=== PATIENT | female | born 1965 | race Caucasian/White ===

== ENCOUNTER 2018-09-30 09:01 | Observation (INO) ==
--- NOTE | 2018-09-30 09:09 | Emergency Department Note ---
Disposition Clinical Impression: Hypoxia CAP (community acquired pneumonia) Qualifiers: Laterality: unspecified laterality Qualified Code(s): J18.9 - Pneumonia, unspecified organism Dyspnea Qualifiers: Dyspnea type: shortness of breath Qualified Code(s): R06.02 - Shortness of breath; R06.00 - Dyspnea, unspecified; R06.01 - Orthopnea Disposition: Home, Self-Care Condition: Good General Adult HPI - General Stated complaint: GREGORY Time Seen by Provider: 09/30/18 09:07 Source: patient, EMS Mode of arrival: EMS Limitations: no limitations Nursing Notes Reviewed: Yes Vital Signs Reviewed: Yes - History of Present Illness Pt Subjective Complaint: "Trouble breathing, still coughing, still sick" Onset (ago): day(s) ("It started Saturday") Location: chest ("Feels tight and sore when I cough") Radiation: non-radiation Pain Severity: mild Quality: other ("tight") Consistency: constant Improves with: nothing Worsens with: other (coughing) Associated symptoms: Reports: chest pain, cough, fever/chills, malaise. Denies: confusion, diaphoresis, headaches, loss of appetite, nausea/vomiting, rash, seizure, shortness of breath, syncope, weakness Treatments Prior to Arrival: none - Related Data Previous Rx's Medication Instructions Recorded Famotidine [Pepcid] 20 mg PO BID #60 tablet 04/22/15 Peg 3350/Na Sulf,Bicarb,Cl/KCl 4,000 ml PO DAILY #1 soln.recon 04/23/15 [Golytely Solution] Allergies Allergy/AdvReac Type Severity Reaction Status Date / Time No Known Allergies Allergy Verified 09/30/18 09:04 All systems ED: reviewed and negative except as stated. Review of Systems: As Per HPI Constitutional: Reports: as per HPI, fever. Denies: chills, weakness, weight change Eyes: Denies: eye pain ENT ED: Denies: ear pain, throat pain, congestion, dysphagia Cardiovascular: Reports: as per HPI, chest pain, dyspnea on exertion, orthopnea. Denies: palpitations, edema, syncope Respiratory: Reports: as per HPI, cough, dyspnea, wheezes. Denies: hemoptysis, stridor, sputum production Gastrointestinal: Denies: abdominal pain, nausea, vomiting Genitourinary: Denies: urgency, dysuria, frequency Musculoskeletal: Denies: back pain, neck pain, arthralgia Integumentary: Denies: rash Neurological: Denies: headache, weakness, confusion, vertigo Hematological/Lymphatic: Denies: easy bleeding, easy bruising Past Medical History - Past Medical History Attestation: Yes The following information was validated with the patient. Source: patient, old records reviewed, nursing notes reviewed, other (senior care care provider) Medical history: Reports: other (peripheral edema) Surgical history: Reports: non-contributory Psychiatric history: Reports: schizophrenia - Social History Smoking Status: Former smoker Smokeless Tobacco Status: No Alcohol use: Reports: none Drug use: Reports: none Physical Exam - General Limitations: no limitations General appearance: alert, in no apparent distress - Head Head exam: atraumatic, normocephalic, normal inspection - Eye Eye exam: Present: normal appearance, PERRL. Absent: scleral icterus, conjunctival injection, periorbital swelling - ENT ENT exam: mucous membranes dry - Neck Neck exam: Present: normal inspection, full ROM, trachea midline. Absent: te nderness, meningismus, lymphadenopathy - Chest Chest inspection: Present: normal inspection, symmetric chest wall rise. Absent: tenderness - Respiratory Respiratory exam: Present: respiratory distress (mildly tachypneic), wheezes. Absent: stridor, accessory muscle use, prolonged expiratory phase - Expanded Respiratory Exam Location: wheezes: Left, Right, Upper, Lower, rhonchi: Left, Lower, decreased breath sounds: Left, Right, Upper, Lower - Cardiovascular Cardiovascular exam: Present: regular rate, normal rhythm - Extremities Exam Extremities exam: Present: normal inspection, normal capillary refill. Absent: pedal edema, calf tenderness - Back Exam Back exam: Present: normal inspection - Neurological Exam Neurological exam: Present: alert, oriented X3, CN II-XII intact, normal gait - Psychiatric Psychiatric exam: Present: normal affect, normal mood - Skin Skin exam: Present: warm, dry, intact, normal color Course Course Narrative: Patient was brought to the ER by squad from her workshop for evaluation of trouble breathing. Patient provides some of the history. The staff member from the [id number] provides some history as well. Later, one of the patient's caregivers from the senior care arrived and also provided some history. Patient reportedly has been ill since Saturday with cough and congestion, fever, chills, malaise. All of the members of the senior care including staff were treated with Tamiflu. Patient did not have a nasal swab done on Saturday. She has been taking the Tamiflu since Saturday evening. No fever since Saturday morning. She states that she felt a little bit better Saturday, however, her cough and trouble breathing have worsened since yesterday. She has chest tightness. Denies hemoptysis, leg pain or swelling, history of DVT or PE, recent surgery procedure air travel or prolonged sedentary periods. She also denies history of coronary artery disease, COPD, emphysema, CHF. She does occasionally have some swelling in her feet and ankles. She states that she takes a water pill for this as needed. On exam, patient is mildly tachypneic but is able to speak in short sentences without pausing to breathe. No use of accessory muscles. She is very wheezy and tight with left lower rhonchi. No other abnormalities noted on physical exam. X-ray, labs and meds ordered. Patient received a DuoNeb treatment while in route. Two additional DuoNeb treatments have been ordered. Labs show mild leukopenia, CO2 of 30, otherwise normal. Blood cultures were obtained 2. Influenza nasal swab is negative. Chest x-ray has been read by the radiologist as no acute abnormality. Patient continues to have a profoundly congested sounding cough. She still feels a little short of breath but this is improved. She denies chest pain at this time. A road test pending. Patient ambulated approximately 20 yards and felt short of breath. Her oxygen saturation dropped to 87% on room air. She was able to ambulate back to the bed without assistance. Suspect that she has a pneumonia. Do not suspect PE as the patient's well score is zero, no history of DVT or PE. No family history of DVT or PE, no recent prolonged sedentary periods, procedures or surgeries. No known cancer. We will contact the hospitalist for admission. Patient has been accepted for admission. The hospitalist requests that we start patient on Levaquin. This has been ordered. Vital Signs Temperature 98.0 F 09/30/18 09:04 Pulse Rate 69 09/30/18 09:04 Respiratory Rate 24 09/30/18 09:04 Blood Pressure 133/68 09/30/18 09:04 O2 Sat by Pulse Oximetry 100 09/30/18 09:04 Temperature 98.0 F 09/30/18 09:04 Pulse Rate 69 09/30/18 09:04 Respiratory Rate 15 09/30/18 09:25 Blood Pressure 133/68 09/30/18 09:04 O2 Sat by Pulse Oximetry 95 09/30/18 09:25 Oxygen Delivery Oxygen Delivery Aerosol Mask Medical Decision Making - Medical Records Medical records reviewed: Yes I reviewed the patient's medical records. - Lab Data Lab results reviewed: Yes I reviewed the patient's lab results. Lab results narrative: Laboratory Last Values WBC 3.9 K/mcL (4.3-11.1) L 09/30/18 09:13 RBC 4.38 M/mcL (3.82-4.97) 09/30/18 09:13 Hgb 13.2 g/dL (11.5-15.4) 09/30/18 09:13 Hct 39.7 % (35.3-44.9) 09/30/18 09:13 MCV 90.6 fL (83.0-100.0) 09/30/18 09:13 MCH 30.1 pg (28.0-33.3) 09/30/18 09:13 MCHC 33.2 g/dL (31.6-35.5) 09/30/18 09:13 RDW 12.7 % (11.5-14.5) 09/30/18 09:13 Plt Count 279 K/mcL (140-400) 09/30/18 09:13 MPV 8.8 fL (9.4-12.4) L 09/30/18 09:13 Immature Gran % 0.5 % (0-4) 09/30/18 09:13 Seg Neutrophils % 45.8 % 09/30/18 09:13 Lymphocytes % 38.6 % 09/30/18 09:13 Monocytes % 11.2 % 09/30/18 09:13 Eosinophils % 3.6 % 09/30/18 09:13 Basophils % 0.3 % 09/30/18 09:13 Neutrophils # 1.8 K/mcL (1.6-8.9) 09/30/18 09:13 Lymphocytes # 1.5 K/mcL (0.6-4.6) 09/30/18 09:13 Monocytes # 0.4 K/mcL (0.0-1.3) 09/30/18 09:13 Eosinophils # 0.1 K/mcL (0.0-0.6) 09/30/18 09:13 Basophils # 0.0 K/mcL (0.0-0.2) 09/30/18 09:13 Sodium 137 mEq/L (136-145) 09/30/18 09:13 Potassium 4.6 mEq/L (3.5-5.1) 09/30/18 09:13 Chloride 101 mEq/L (98-107) 09/30/18 09:13 Carbon Dioxide 31 mEq/L (23-29) H 09/30/18 09:13 BUN 8 mg/dL (6-20) 09/30/18 09:13 Creatinine 0.68 mg/dL (0.60-1.20) 09/30/18 09:13 Est GFR ( Amer) > 60 (> 60) 09/30/18 09:13 Est GFR (Non-Af Amer) > 60 (> 60) 09/30/18 09:13 BUN/Creatinine Ratio 12 (6-26) 09/30/18 09:13 Glucose 88 mg/dL (70-105) 09/30/18 09:13 Calculated Osmolality 282 (280-300) 09/30/18 09:13 Lactic Acid 0.8 mmol/L (0.5-2.2) 09/30/18 09:13 Calcium 9.1 mg/dL (8.6-10.3) 09/30/18 09:13 Troponin I < 0.03 ng/mL (< 0.04) 09/30/18 09:13 B-Natriuretic Peptide 14 pg/mL (Less than 100) 09/30/18 09:13 Result diagrams: 09/30/18 09:13 09/30/18 09:13 Lab Results 09/30/18 09/30/18 09/30/18 Range/Units 09:13 09:13 09:13 WBC 3.9 L (4.3-11.1) K/mcL RBC 4.38 (3.82-4.97) M/mcL Hgb 13.2 (11.5-15.4) g/dL Hct 39.7 (35.3-44.9) % MCV 90.6 (83.0-100.0) fL MCH 30.1 (28.0-33.3) pg MCHC 33.2 (31.6-35.5) g/dL RDW 12.7 (11.5-14.5) % Plt Count 279 (140-400) K/mcL MPV 8.8 L (9.4-12.4) fL Immature Gran % 0.5 (0-4) % Seg Neutrophils % 45.8 % Lymphocytes % 38.6 % Monocytes % 11.2 % Eosinophils % 3.6 % Basophils % 0.3 % Neutrophils # 1.8 (1.6-8.9) K/mcL Lymphocytes # 1.5 (0.6-4.6) K/mcL Monocytes # 0.4 (0.0-1.3) K/mcL Eosinophils # 0.1 (0.0-0.6) K/mcL Basophils # 0.0 (0.0-0.2) K/mcL Sodium 137 (136-145) mEq/L Potassium 4.6 (3.5-5.1) mEq/L Chloride 101 (98-107) mEq/L Carbon Dioxide 31 H (23-29) mEq/L BUN 8 (6-20) mg/dL Creatinine 0.68 (0.60-1.20) mg/dL Est GFR ( Amer) > 60 (> 60) Est GFR (Non-Af Amer) > 60 (> 60) BUN/Creatinine Ratio 12 (6-26) Glucose 88 (70-105) mg/dL Calculated Osmolality 282 (280-300) Lactic Acid 0.8 (0.5-2.2) mmol/L Calcium 9.1 (8.6-10.3) mg/dL Troponin I < 0.03 (< 0.04) ng/mL - Radiology Data Radiology results reviewed: Yes I reviewed the patient's radiology results. Chest X-Ray 09/30/18 09:10 IMPRESSION: No focal airspace disease or overt edema. D/ / Cristin Collins MD / Cristin Collins MD Interpreting Provider: Cristin Collins MD - EKG Data EKG #1 EKG attestation: Yes I reviewed and interpreted this EKG. EKG shows normal: sinus rhythm Rate: normal Rhythm: NSR When compared to previous EKG there are: no significant changes Interpretation: unchanged when compared to prior tracing (date)
[2018-09-30] MEDS ORDERED: Ipratropium/Albuterol Neb 3 ML IH ONE (09:10)
[2018-09-30] MEDS ORDERED: 0.9 % Sodium Chloride 1,000 ML IVC ONE (09:10)
[2018-09-30] MEDS ORDERED: methylPREDNISolone 125 MG/2 ML VIAL IVP ONE (09:10)
[2018-09-30 09:32] LABS: Basophils % 0.3 %; Eosinophils # 0.1 K/mcL (0.0-0.6); Eosinophils % 3.6 %; Hematocrit 39.7 % (35.3-44.9); Hemoglobin 13.2 g/dL (11.5-15.4); Immature Granulocytes % 0.5 % (0-4); Lymphocytes # 1.5 K/mcL (0.6-4.6); Lymphocytes % 38.6 %; Mean Corpuscular HGB Conc 33.2 g/dL (31.6-35.5); Mean Corpuscular Hemoglobin 30.1 pg (28.0-33.3); Mean Corpuscular Volume 90.6 fL (83.0-100.0); Mean Platelet Volume 8.8 fL (9.4-12.4); Monocytes # 0.4 K/mcL (0.0-1.3); Monocytes % 11.2 %; Neutrophils # 1.8 K/mcL (1.6-8.9); Platelet Count 279 K/mcL (140-400); Red Blood Count 4.38 M/mcL (3.82-4.97); Red Cell Distribution Width 12.7 % (11.5-14.5); Segmented Neutrophils % 45.8 %
[2018-09-30] MEDS ORDERED: GuaiFENesin/Dextromethorphan TABLET PO ONE (09:36)
[2018-09-30 09:56] LABS: BUN/Creatinine Ratio 12 (6-26); Blood Urea Nitrogen 8 mg/dL (6-20); Calcium 9.1 mg/dL (8.6-10.3); Carbon Dioxide 31 mEq/L (23-29); Chloride 101 mEq/L (98-107); Glucose 88 mg/dL (70-105); Osmolality,Calculated 282 (280-300); Potassium 4.6 mEq/L (3.5-5.1); Sodium 137 mEq/L (136-145); Troponin I < 0.03 ng/mL (< 0.04); eGFR For Non-African Americans > 60 (> 60)
--- NOTE | 2018-09-30 10:50 | Internal Med History&Physical ---
Date of Encounter: 09/30/18 Time of Encounter: 10:50 Internal Medicine - H&P: HPI History of present illness: Ms. Collado is a 53 year old female who presented with trouble breathing associated with cough and congestion, fever, chills, malaise. She is from a longterm and if they reported that over staff had similar symptoms and they were all treated with Tamiflu. The patient was evaluated by the ER staff and was found to be mildly tachypneic and when they try to work her she desaturated to 87% on room air. Her laboratory data revealed leukocytosis, her chest x-ray was not significant for pneumonia however, her lung exam revealed severe wheezing and she continued to have persistent cough, decision was made to admit the patient for further evaluation and management of possible community-acquired pneumonia. Past Med Surg Social Fam HX - Past Medical History Medical history: other (peripheral edema) Psychiatric history: schizophrenia - Past Surgical History Surgical History: non-contributory - Social History Smoking Status: Former smoker Smokeless Tobacco Status: No Alcohol use: none Drug use: none Internal Medicine - H&P: Meds Acetaminophen [Non-Aspirin] 650 mg PO Q4H PRN 09/30/18 [History] Albuterol Neb [Proventil Neb] 2.5 mg IH Q4H PRN 09/30/18 [History] Aspirin 81 mg PO 199909/30/18 [History] Docusate Sodium [Dulcolax Stool Softener] 100 mg PO 0800 09/30/18 [History] Duloxetine HCl [Cymbalta] 60 mg PO BID 09/30/18 [History] Furosemide [Lasix] 10 mg PO Q48H 09/30/18 [History] Mirtazapine [Remeron] 30 mg PO 199909/30/18 [History] Nitroglycerin [Nitrostat] 0.4 mg SL Q5MIN PRN MDD X3 DOSES CALL 911 09/30/18 [History] Omeprazole [PriLOSEC] 20 mg PO 0709/30/18 [History] Oseltamivir [Tamiflu] 75 mg PO BID 09/30/18 [History] Oxybutynin Chloride [Ditropan Xl] 10 mg PO BID 09/30/18 [History] Polyethylene Glycol 3350 [Purelax] 17 gm PO 1999 PRN 09/30/18 [History] Saline Nasal [place] [[place] Nasal [place]] 1 spr NS BID 09/30/18 [History] Zolpidem [Ambien] 10 mg PO 199909/30/18 [History] diazePAM [Valium] 5 mg PO AD 09/30/18 [History] risperiDONE [RisperDAL] 3 mg PO 199909/30/18 [History] Allergy/AdvReac Type Severity Reaction Status Date / Time No Known Allergies Allergy Verified 09/30/18 09:04 All Systems PM: A 10-system review of systems was performed and is negative for pertinent findings except as documented above in the HPI. - Constitutional Constitutional: chills, fatigue, fever(s), malaise, no night sweats - Cardiovascular Cardiovascular ROS IM: no chest pain, no diaphoresis, no dyspnea, no lightheadedness, no palpitations, no syncope - Respiratory Respiratory: cough, wheezing, no excessive phlegm production - Gastrointestinal Gastrointestinal: no abdominal pain, no diarrhea, no hematemesis, no hematochezia, no melena, no nausea, no vomiting - Neurological Neurological ROS: no confusion, no convulsions, no focal weakness, no numbness, no tingling, no tremor(s) - Constitutional Vitals: Temp Pulse Resp BP Pulse Ox 98.0 F 72 15 152/94 100 09/30/18 09:04 09/30/18 10:27 09/30/18 09:25 09/30/18 10:27 09/30/18 10:27 General appearance: Present: A&O X 3 - Head Head exam: Present: atraumatic, normocephalic - Neck Neck exam general surgery: Present: supple, trachea midline. Absent: lymphadenopathy - Respiratory Respiratory exam: Present: rhonchi, wheezes. Absent: accessory muscle use, rales - Cardiovascular Cardiovascular exam: Present: RRR, +S1, +S2. Absent: diastolic murmur, gallop, rubs, systolic murmur - GI/Abdominal GI/Abdominal exam: Present: normal bowel sounds, soft, no peritoneal signs. Absent: distended, tenderness - Extremities Exam Extremities exam: Present: warm, radial pulses palpable and symmetrical. Absent: calf tenderness, cyanotic, pedal edema Internal Med - H&P Results - Labs CBC & Chem 7: 09/30/18 09:13 09/30/18 09:13 Labs: Short CBC 09/30/18 Range/Units 09:13 WBC 3.9 L (4.3-11.1) K/mcL Hgb 13.2 (11.5-15.4) g/dL Hct 39.7 (35.3-44.9) % Plt Count 279 (140-400) K/mcL Neutrophils # 1.8 (1.6-8.9) K/mcL BMP 09/30/18 09:13 Sodium 137 Potassium 4.6 Chloride 101 Carbon Dioxide 31 H BUN 8 Creatinine 0.68 Glucose 88 Calcium 9.1 Cardiac Enzymes 09/30/18 Range/Units 09:13 Troponin I < 0.03 (< 0.04) ng/mL - Impressions ITS Impressions Chest X-Ray 09/30/18 09:10 IMPRESSION: No focal airspace disease or overt edema. D/ / Cristin Collins MD / Cristin Collins MD Interpreting Provider: Cristin Collins MD - Assessment and Plan (1) CAP (community acquired pneumonia) Current Visit: Yes Status: Acute Assessment and plan: SOB due to *Pneumonia Previous ABx Tx- , Structural lung disease- - Blood Cx - Urine Legionella antigen - Antibiotics - CBCD, CMP in AM - Tylenol 650 mg PO q 4-6 hr PRN pain or fever - Home meds - check the list and restart accordingly - Heparin 5000 U SQ BID Qualifiers: Laterality: unspecified laterality Qualified Code(s): J18.9 - Pneumonia, unspecified organism (2) DVT prophylaxis Current Visit: Yes Status: Acute - Time Spent With Patient Total time spent is greater than 50% in coordination of care (as documented) at patient's floor/unit and/or counseling patient:
[2018-09-30] MEDS ORDERED: Levofloxacin 500 MG/100 ML 500 MG/100 ML BAG IVPB ONE (10:51)
[2018-09-30] MEDS ORDERED: Mag Hydrox/Al Hydrox/Simeth 30 ML UDC PO PRN (10:53)
[2018-09-30] MEDS ORDERED: Acetaminophen 325 MG TABLET PO PRN ×2 (10:53→17:54)
[2018-09-30] MEDS ORDERED: Naloxone 0.4 MG/ML INJ IVP PRN (10:53)
[2018-09-30] MEDS ORDERED: Ondansetron 4 MG/2 ML VIAL IVP PRN (10:53)
[2018-09-30 11:47] LABS: INR 1.1; Prothrombin Time 12.4 Seconds (9.4-12.1)
[2018-09-30 11:50] LABS: Activated Partial Thrombo Time 41.9 Seconds (26.0-36.0); Chol/HDL Ratio 3.1 (0-4.9)
[2018-09-30] MEDS: 0.9 % Sodium Chloride 1,000 ML IVC SCH (14:37)
[2018-09-30] MEDS ORDERED: Albuterol 2.5 MG/3 ML NEBULIZER IH PRN (17:54)
[2018-09-30] MEDS ORDERED: Nitroglycerin 0.4 MG TAB.SUBL SL PRN (17:54)
[2018-09-30] MEDS ORDERED: diazePAM 5 MG TABLET PO SCH (18:00)
[2018-09-30] MEDS ORDERED: Aspirin 81 MG TAB.CHEW PO SCH (20:00)
[2018-09-30] MEDS ORDERED: RisperiDAL 3 MG TABLET PO SCH (20:00)
[2018-09-30] MEDS ORDERED: Mirtazapine 15 MG TABLET PO SCH (20:00)
[2018-09-30] MEDS: Saline Nasal Spray 44 ML BOTTLE NS SCH (21:16)
[2018-10-01] MEDS: 0.9 % Sodium Chloride 1,000 ML IVC SCH (00:47)
[2018-10-01 01:53] LABS: Influenza B PCR Negative (Negative); Resp. Syncytial Virus PCR Negative (Negative)
[2018-10-01 01:57] LABS: Influenza A PCR Positive (Negative)
[2018-10-01 05:37] LABS: Basophils % 0.1 %; Eosinophils % 0.1 %; Hematocrit 35.9 % (35.3-44.9); Immature Granulocytes % 0.4 % (0-4); Lymphocytes # 1.3 K/mcL (0.6-4.6); Lymphocytes % 18.2 %; Mean Corpuscular HGB Conc 33.4 g/dL (31.6-35.5); Mean Corpuscular Hemoglobin 30.2 pg (28.0-33.3); Mean Corpuscular Volume 90.2 fL (83.0-100.0); Mean Platelet Volume 9.1 fL (9.4-12.4); Monocytes # 0.7 K/mcL (0.0-1.3); Monocytes % 9.4 %; Platelet Count 268 K/mcL (140-400); Red Blood Count 3.98 M/mcL (3.82-4.97); Red Cell Distribution Width 12.9 % (11.5-14.5); Segmented Neutrophils % 71.8 %
[2018-10-01 05:56] LABS: Alanine Aminotransferase 33 Units/L (7-52); Albumin 3.5 g/dL (3.5-5.7); Albumin/Globulin Ratio 1.1 (1.1-2.2); Alkaline Phosphatase 83 Units/L (34-104); Aspartate Amino Transferase 25 Units/L (13-39); BUN/Creatinine Ratio 20 (6-26); Bilirubin,Total 0.4 mg/dL (0.3-1.0); Blood Urea Nitrogen 12 mg/dL (6-20); Calcium 8.7 mg/dL (8.6-10.3); Carbon Dioxide 25 mEq/L (23-29); Chloride 105 mEq/L (98-107); Globulin 3.1 g/dL (2.4-3.5); Glucose 112 mg/dL (70-105); Magnesium 1.7 mg/dL (1.6-2.6); Osmolality,Calculated 285 (280-300); Sodium 137 mEq/L (136-145); Total Protein 6.6 g/dL (6.4-8.9); eGFR For Non-African Americans > 60 (> 60)
[2018-10-01 05:59] LABS: Phosphorous 2.8 mg/dL (2.7-4.5)
[2018-10-01] MEDS: Saline Nasal Spray 44 ML BOTTLE NS SCH (08:27)
[2018-10-01] MEDS ORDERED: Levofloxacin 750 MG/150 ML 750 MG/150 ML BAG IVPB SCH (09:00)
[2018-10-01 11:57] VITALS: BP 149/77
--- NOTE | 2018-10-01 12:52 | Discharge Summary ---
- NOTES TO OUTPATIENT PROVIDER Notes to Outpatient Provider: f/u with PCP in one week. Please finish your full course of Tamiflu. 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 She is from a detention and if they reported that over staff had similar symptoms and they were all started on Tamiflu. Her chest x-ray was not significant for pneumonia however, her lung exam revealed severe wheezing and she continued to have persistent cough with expectoration. Her Influenza A came back as positive so recommend to finish her full course of Tamiflu. She was started on empirical abx Levaquin for her purulent bronchitis. Pt is breathing comfortably on RA today. She is tolerating PO Intake well. Will d/c her home today after an ambulating pulse oxy study. Will d/c her on PO tapering dose of steroids and empirical abx Levaquin. - Time Spent with Patient Total time spent providing and/or coordinating discharge services: - Discharge Medications Prescriptions: New Levofloxacin [Levaquin] 750 mg PO DAILY #5 tablet predniSONE [PredniSONE] 40 mg PO DAILY #10 tablet Continue Acetaminophen [Non-Aspirin] 650 mg PO Q4H PRN PRN Reason: ELEVATED TEMP >101.0 Albuterol Neb [Proventil Neb] 2.5 mg IH Q4H PRN PRN Reason: Shortness Of Breath Aspirin 81 mg PO 2000 diazePAM [Valium] 5 mg PO AD Docusate Sodium [Dulcolax Stool Softener] 100 mg PO 0800 Duloxetine HCl [Cymbalta] 60 mg PO BID Furosemide [Lasix] 10 mg PO Q48H Mirtazapine [Remeron] 30 mg PO 1999 Omeprazole [PriLOSEC] 20 mg PO 0700 Oxybutynin Chloride [Ditropan Xl] 10 mg PO BID Polyethylene Glycol 3350 [Purelax] 17 gm PO 1999 PRN PRN Reason: Constipation risperiDONE [RisperDAL] 3 mg PO 1999 Saline Nasal [place] [[place] Nasal [place]] 1 spr NS BID Zolpidem [Ambien] 10 mg PO 1999 Oseltamivir [Tamiflu] 75 mg PO BID Nitroglycerin [Nitrostat] 0.4 mg SL Q5MIN PRN MDD X3 DOSES CALL 911 PRN Reason: Chest Pain Home Medications: Acetaminophen [Non-Aspirin] 650 mg PO Q4H PRN 09/30/18 [History] Albuterol Neb [Proventil Neb] 2.5 mg IH Q4H PRN 09/30/18 [History] Aspirin 81 mg PO 199909/30/18 [History] Docusate Sodium [Dulcolax Stool Softener] 100 mg PO 0800 09/30/18 [History] Duloxetine HCl [Cymbalta] 60 mg PO BID 09/30/18 [History] Furosemide [Lasix] 10 mg PO Q48H 09/30/18 [History] Mirtazapine [Remeron] 30 mg PO 199909/30/18 [History] Nitroglycerin [Nitrostat] 0.4 mg SL Q5MIN PRN MDD X3 DOSES CALL 911 09/30/18 [History] Omeprazole [PriLOSEC] 20 mg PO 0700 09/30/18 [History] Oseltamivir [Tamiflu] 75 mg PO BID 09/30/18 [History] Oxybutynin Chloride [Ditropan Xl] 10 mg PO BID 09/30/18 [History] Polyethylene Glycol 3350 [Purelax] 17 gm PO 1999 PRN 09/30/18 [History] Saline Nasal [place] [[place] Nasal [place]] 1 spr NS BID 09/30/18 [History] Zolpidem [Ambien] 10 mg PO 199909/30/18 [History] diazePAM [Valium] 5 mg PO AD 09/30/18 [History] risperiDONE [RisperDAL] 3 mg PO 199909/30/18 [History] Levofloxacin [Levaquin] 750 mg PO DAILY #5 tablet 10/01/18 [Rx] predniSONE [PredniSONE] 40 mg PO DAILY #10 tablet 10/01/18 [Rx] Allergies/Adverse Reactions: Allergy/AdvReac Type Severity Reaction Status Date / Time No Known Allergies Allergy Verified 09/30/18 09:04 Date of admission: 09/30/18 10:56 Primary care physician: Brittani Moon Consults: 09/30/18 17:59 Consult to Nurse Navigator [CONS] Routine Comment: PNEUMONIA - Constitutional Vitals: Temp Pulse Resp BP Pulse Ox 97.5 F L 75 17 149/77 96 10/01/18 11:55 10/01/18 11:55 10/01/18 11:55 10/01/18 11:55 10/01/18 11:55 General appearance: Present: A&O X 3, no acute distress, answers questions appropriately Exam: Gen: Alert, awake, Oriented to time,place and person Chest: Diminished breath sounds B/L, Moderate wheezing, No crackles, No rales Heart: S1S2+ RRR No murmurs Abd: Soft, NT, BS +, No organomegaly Ext: No edema, pulses are palpable, No calf tenderness Neuro : Benign findings Skin: No rash. - Patient Status Disposition: Home, Self-Care Condition: Good Overall status at discharge: patient is back to baseline - Discharge Instructions Follow Up With: Brittani Moon MD [Primary Care Provider] - Forms: ED Satisfaction Letter - Diet and Activity Activity: increase activity as tolerated Diet: low salt diet
--- NOTE | 2018-10-03 05:01 | Electrocardiograph Report ---
[place] [id number] Test Date: 2018-09-30 Pat Name: Ml Collado Department: EXAM3 Room: 3B45 Gender: F Shift Manager: : 1965 Requested By: Piedad Denise Order Number: [id number] Reading MD: Rafita Miller Measurements Intervals [place] Rate: 74 P: 51 NE: 140 QRS: 82 QRSD: 92 T: 53 QT: 416 QTc: 462 Interpretive Statements Sinus rhythm Low voltage, precordial leads Electronically Signed On 10-03-2018 5:00:22 EDT by Rafita Miller
== END 2018-10-01 15:10 | disposition home or self-care (01) ==
LOC: EMEROOARM 09:01 → 3BNU 09:01
PROVIDERS: ADMIT Internal Medicine Nephrology; ATTEND Internal Medicine Nephrology